=== PATIENT | male | born 1985 | race Caucasian/White ===

== ENCOUNTER 2017-07-14 18:07 | Emergency (ER) | payer BC ==
[~2017-07-14] VITALS: Ht 182.9 cm; Wt 112.8 kg
[~2017-07-14 18:07] MED LIST: DIAZEPAM5 MG PO; OPANA ER40 MG PO; OXYCODONE HCL15 MG PO; OXYCODONE HCL30 MG PO; Opana ER PO; SUBOXONE 8 MG-1 EAC2 SL; oxyCODONE PO
[2017-07-14 19:46] LABS: APPEARANCE CLEAR ((CLEAR)); BILIRUBIN NEGATIVE; BLOOD NEGATIVE; COLOR YELLOW ((YELLOW)); GLUCOSE (STRIP) NEGATIVE; KETONES 5; LEUKOCYTES NEGATIVE; NITRITE NEGATIVE; PROTEIN (STRIP) NEGATIVE; SPECIFIC GRAVITY 1.013 (1.000-1.030); UROBILINOGEN 0.2 MG/DL (0.2-1.0)
[2017-07-14 20:02] LABS: ALBUMIN 4.3 g/dL (3.2-4.8); CHLORIDE 103 mEq/L (99-109); POTASSIUM 4.6 mEq/L (3.7-5.4); SODIUM 141 mEq/L (136-147)
[2017-07-14 20:05] LABS: GLUCOSE 100 mg/dL (70-99); TOTAL PROTEIN 7.5 g/dL (6.4-8.3)
[2017-07-14 20:08] LABS: ALKALINE PHOSPHATASE 78 IU/L (3-129); CREATININE 0.8 mg/dL (0.6-1.3); GFR ESTIMATE (CALCULATED) > 59 mL/min/ (58.99-99999)
[2017-07-14 20:09] LABS: UREA NITROGEN (BUN) 9 mg/dL (9-23)
[2017-07-14 20:10] LABS: AST (GOT) 19 IU/L (2-34)
[2017-07-14 20:11] LABS: ALT (GPT) 22 IU/L (3-49)
[2017-07-14 20:31] LABS: BASOPHIL (%) 0.1 % (0-1); EOSINOPHIL (%) 0 % (0-5); HEMATOCRIT 42.2 % (38.0-50.0); HEMOGLOBIN 14.7 G/DL (12.5-16.6); IMMATURE GRANULOCYTE (%) 0.5 % (0.0-0.7); LYMPHOCYTE (%) 10.8 % (15-42); LYMPHOCYTE COUNT 1.7 K/uL (1.0-2.8); MCH 30.3 PG (29.0-34.0); MCHC 34.8 G/DL (30.0-36.0); MONOCYTE (%) 5.7 % (3-12); MONOCYTE COUNT 0.9 K/uL (0-0.8); NEUTROPHIL (%) 82.9 % (45-76); NEUTROPHIL COUNT 13.2 K/uL (1.8-6.4); PLATELET COUNT 201 K/uL (156-360); RBC DIS.WIDTH-CV 11.8 % (11.8-14.6); RBC DIS.WIDTH-SD 37.6 % (39-53); RED BLOOD COUNT 4.85 M/uL (4.00-5.50); WHITE BLOOD COUNT 15.9 K/uL (4.1-10.2)
[2017-07-14 20:47] LABS: DIRECT BILIRUBIN 0.6 mg/dL (0.0-0.3)
[2017-07-14 20:56] LABS: MONOSPOT (MONONUCLEOSIS SEROL) NEGATIVE
[2017-07-14] MEDS ORDERED: BENTYL20 MG PO (22:15)
[2017-07-14] MEDS ORDERED: ZOFRAN ODT8 MG PO (22:15)
[2017-07-14] MEDS ORDERED: TESSALON PERLE100 MG PO (22:19)
[2017-07-14 22:34] VITALS: BP 127/60
[2017-07-16 10:53] LABS: HEPATITIS B SURFACE ANTIGEN Nonreactive; HEPATITIS C ANTIBODY Nonreactive
[2017-07-16 10:54] LABS: ANTI-HEPATITIS A VIRUS (IGM) Nonreactive
[2017-07-16 10:55] LABS: ANTI-HEPATITIS B CORE (IGM) Nonreactive
== END 2017-07-14 22:37 | disposition home or self-care (01) ==
LOC: EME 18:07
PROVIDERS: Physician Assistant
DX: A08.4 Viral intestinal infection, unspecified (principal); R10.12 Left upper quadrant pain; E86.0 Dehydration
CPT/HCPCS: 71020; 74020; 80053; 80074; 81003; 82248; 85025; 86308; 86664; 86665; 87502; 99281; 99285; J0500; J1885